=== PATIENT | female | born 1995 | race Caucasian/White ===

== ENCOUNTER 2023-03-29 00:29 | Emergency (ER) | payer MEDICAID ==
[~2023-03-29] VITALS: Ht 165.1 cm; Wt 91.0 kg
[2023-03-29 00:58] VITALS: BP 150/72
[2023-03-29] MEDS ORDERED: FAMOTIDINE 20MG TABLET PO ONE (02:00)
[2023-03-29] MEDS ORDERED: DEXAMETHASONE 4MG TABLET PO ONE (02:00)
[2023-03-29] MEDS ORDERED: DIPHENHYDRAMINE 25MG CAPSULE PO ONE (02:00)
[2023-03-29] MEDS ORDERED: DIPH25CA83 MT (02:12)
== END 2023-03-29 02:47 | disposition home or self-care (01) ==
LOC: ER 00:29
DX: T78.40XA Allergy, unspecified, initial encounter (principal); X58.XXXA Exposure to other specified factors, initial encounter
CPT/HCPCS: 99284; J8540; Q0163

== ENCOUNTER 2024-02-27 14:20 | Emergency (ER) | payer MEDICAID ==
[~2024-02-27] VITALS: Ht 167.6 cm; Wt 100.0 kg
[~2024-02-27 14:20] MED LIST: DIPH25CA83 MT
[2024-02-27 14:59] VITALS: O2SAT 98
[2024-02-27] MEDS: KETOROLAC 30MG/ML VIAL IM NR (17:31)
[2024-02-27] MEDS: CYCLOBENZAPRINE 10MG TABLET PO ONE (17:31)
[2024-02-27] MEDS: CYCLOBENZAPRINE 10MG TABLET PO NR (17:31)
[2024-02-27] MEDS: KETOROLAC 30MG/ML VIAL IM ONE (17:32)
[2024-02-27] MEDS ORDERED: CYCL10TA21 MT (17:35)
[2024-02-27] MEDS ORDERED: ACET-2708 MT (17:35)
[2024-02-27 17:56] VITALS: BP 117/84; PULSE 86; RESP 18; TEMP 98.3
== END 2024-02-27 18:00 | disposition home or self-care (01) ==
LOC: ER 14:20
DX: G89.29 Other chronic pain (principal); M54.50 Low back pain, unspecified
CPT/HCPCS: 96372; 99283; J1885; Z7610